=== PATIENT | female | born 1980 | race American Indian/Alaskan Native ===

== ENCOUNTER 2019-03-29 20:24 | Emergency (ER) | payer SELFPAY ==
[2019-03-29] MEDS ORDERED: NACL 0.9% 1000 ML 1,000 ML IV ONE (20:41)
--- NOTE | 2019-03-29 20:43 | Emergency Department Report ---
ED General Adult HPI - General Chief complaint: Arrhythmia/Palpitations Stated complaint: CHEST PAIN Time Seen by Provider: 03/29/19 20:31 Source: patient, EMS (verbal report received from EMS.ems notes not available at time of chart dictation), RN notes reviewed, old records reviewed Mode of arrival: Stretcher Limitations: No Limitations - History of Present Illness Initial comments: This is a 38-year-old female. This patient is not known to this provider previously. She typically follows at the [facility]. Her past medical history includes obesity, bronchitis, tobacco use, hypertension and lupus. She is noncompliant with prednisone and was lisinopril and she reports that she does not take control tablets oral contraceptives, and she states she has not delivered a given within the past 6 weeks. The patient is brought to the hospital by EMS for chest pressure, palpitations, lightheadedness and shortness of breath. EMS found the patient to be in SVT, which did not react to vagal maneuvers, but terminated with 6 mg of adenosine. She states she is not , and she reports onset of right-sided breast pain, burning in nature, earlier on this morning, with an associated breast lump. This burning pain did not radiate to the back, arms or neck. There is no vomiting, diaphoresis or shortness of breath associated with her previous pain. The patient also endorses a chronic cough, and intermittent mucus production. She also has chronic right-sided paracervical neck pain. Us is nontraumatic. Kaia roberto, after receiving adenosine, she is not in SVT, currently denies chest pain, shortness of breath, palpitations. The patient denies other new symptoms. -: Gradual, Sudden Location: chest (right breast) Radiation: non-radiation Quality: aching Consistency: intermittent Improves with: rest Worsens with: movement - Related Data Previous Rx's Medication Instructions Recorded Last Taken Type Azithromycin [Zithromax TAB] 500 mg PO QDAY #5 tablet 01/31/14 Unknown Rx Allergies Allergy/AdvReac Type Severity Reaction Status Date / Time Latex, Natural Rubber Allergy Intermediate hives, Verified 07/22/13 07:05 swelling hydroxyzine HCl [From Atarax] Allergy Unknown Verified 07/21/13 23:22 ED Review of Systems ROS: Stated complaint: CHEST PAIN Other details as noted in HPI Constitutional: denies: fever Eyes: denies: eye discharge ENT: congestion Respiratory: cough Cardiovascular: chest pain, palpitations Gastrointestinal: denies: nausea, vomiting Genitourinary: denies: dysuria Musculoskeletal: myalgia Skin: denies: lesions Neurological: weakness Psychiatric: anxiety ED Past Medical Hx - Past Medical History Hx Hypertension: No Hx Congestive Heart Failure: No Hx Diabetes: No Hx Deep Vein Thrombosis: No Hx Renal Disease: No Hx Sickle Cell Disease: No Hx Seizures: No Hx Asthma: No Hx COPD: No Hx HIV: No Additional medical history: Hx. Lupus - Social History Smoking Status: Never Smoker - Medications Home Medications: Home Medications Medication Instructions Recorded Confirmed Last Taken Type Azithromycin [Zithromax TAB] 500 mg PO QDAY #5 tablet 01/31/14 Unknown Rx ED Physical Exam - General Limitations: No Limitations General appearance: alert, anxious, obese - Head Head exam: Present: atraumatic, normocephalic - Eye Eye exam: Present: normal appearance, EOMI. Absent: nystagmus - ENT ENT exam: Present: normal exam, normal orophraynx, mucous membranes moist, normal external ear exam - Neck Neck exam: Present: normal inspection, full ROM. Absent: tenderness, meningismus - Respiratory Respiratory exam: Present: normal lung sounds bilaterally, chest wall tenderness, other (nontender right-sided breast masses noted. There is no redness, pus or streaking. Chaperoned by nurse Raya Scott). Absent: respiratory distress, wheezes, rales, rhonchi, stridor - Cardiovascular Cardiovascular Exam: Present: normal rhythm, tachycardia, normal heart sounds. Absent: systolic murmur, diastolic murmur, rubs, gallop - GI/Abdominal GI/Abdominal exam: Present: soft. Absent: distended, tenderness, guarding, rebound, rigid, pulsatile mass - Extremities Exam Extremities exam: Present: normal inspection, full ROM, other (2+ pulses noted in the bilateral upper, lower extremities. Compartments soft. No long bony tenderness. The pelvis is stable.). Absent: pedal edema, joint swelling, calf tenderness - Back Exam Back exam: Present: normal inspection, full ROM. Absent: tenderness, CVA tenderness (R), CVA tenderness (L), paraspinal tenderness, vertebral tenderness - Neurological Exam Neurological exam: Present: alert, oriented X3, other (Extraocular movements intact. Tongue midline. No facial droop. Facial sensation intact to light touch in the V1, V2, V3 distribution bilaterally. 5 and 5 strength in 4 extremities.. Sensation is intact to light touch in 4 extremities.). Absent: motor sensory deficit - Psychiatric Psychiatric exam: Present: anxious - Skin Skin exam: Present: warm, dry, intact, normal color. Absent: rash ED Course Vital Signs 03/29/19 03/29/19 03/29/19 20:31 20:46 21:00 Temperature 98.1 F Pulse Rate 102 H 96 H 108 H Respiratory 15 13 20 Rate Blood Pressure 151/93 150/99 O2 Sat by Pulse 99 98 Oximetry 03/29/19 03/29/19 03/29/19 21:10 21:15 21:30 Temperature Pulse Rate 100 H 92 H Respiratory 17 17 15 Rate Blood Pressure 150/99 151/93 O2 Sat by Pulse 99 99 97 Oximetry 03/29/19 03/29/19 03/29/19 21:46 22:03 22:16 Temperature Pulse Rate 100 H 96 H 92 H Respiratory 13 14 17 Rate Blood Pressure 150/99 150/99 150/99 O2 Sat by Pulse 96 97 Oximetry 03/29/19 03/29/19 03/29/19 22:30 22:46 23:00 Temperature Pulse Rate 90 87 91 H Respiratory 19 17 15 Rate Blood Pressure 150/99 150/99 131/87 O2 Sat by Pulse 98 98 100 Oximetry - Reevaluation(s) Reevaluation #1: 03/29/19 20:56 Differential diagnosis, including not limited to: SVT, thyroid derangement, electrolyte derangement, costochondritis, breast mass, pneumonia, pulmonary embolus, acute coronary syndrome, pulmonary hypertension, obstructive sleep apnea Assessment and plan: 38-year-old female, status post SVT, converted with a denosine, with nonspecific breast pain The patient is afebrile with reassuring vital signs and her tachycardia has resolved. Patient has lupus, which is her only risk factor for DVT, pulmonary embolism, otherwise, low risk by well's criteria. Patient low risk by the heart score, and low risk by the telemetry floor for major adverse cardiac event. Patient most likely has undiagnosed pulmonary hypertension and/or obstructive sleep apnea, given obesity. She is requesting medication for anxiety. We will check basic laboratory studies, EKG 2, d-dimer, troponin 2, and reassess after data points. The patient can follow up with an outpatient deckhand maintenance if her initial ER workup is unremarkable. She can follow up with outpatient primary care doctor or breast surgeon for her breast lesion. Reevaluation #2: 03/29/19 21:54 Troponin negative. D-dimer negative. Laboratory studies unremarkable. Tachycardia resolved. Patient resting comfortably in stretcher, and in no acute distress. Reevaluation #3: 03/29/19 23:14 EKG #2 is unchanged from prior. I'll signs remained stable. X-ray of the chest reviewed and appreciated. Do not clinically suspect pneumonia at this point in time. Reevaluation #4: 03/29/19 23:58 Troponin is negative 2. No additional events noted. Patient will be discharged at this point in time. ED Medical Decision Making - Lab Data Result diagrams: 03/29/19 20:51 03/29/19 20:51 Vital Signs 03/29/19 20:46 Temperature 98.1 F Pulse Rate 101 H Respiratory 14 Rate Blood Pressure 151/93 O2 Sat by Pulse 99 Oximetry Vital Signs 03/29/19 20:46 Temperature 98.1 F Pulse Rate 101 H Respiratory 14 Rate Blood Pressure 151/93 O2 Sat by Pulse 99 Oximetry Lab Results 03/29/19 03/29/19 03/29/19 Range/Units 20:51 20:51 20:51 WBC 9.5 (4.5-11.0) K/mm3 RBC 5.00 (3.65-5.03) M/mm3 Hgb 14.0 (10.1-14.3) gm/dl Hct 43.1 H (30.3-42.9) % MCV 86 (79-97) fl MCH 28 (28-32) pg MCHC 32 (30-34) % RDW 15.4 H (13.2-15.2) % Plt Count 279 (140-440) K/mm3 PT (12.2-14.9) Sec. INR (0.87-1.13) APTT (24.2-36.6) Sec. D-Dimer (0-234) ng/mlDDU Magnesium 1.90 (1.7-2.3) mg/dL Total Creatine Kinase 47 (30-135) units/L HCG, Quant < 2 (0-4) mIU/mL 03/29/19 Range/Units 20:51 WBC (4.5-11.0) K/mm3 RBC (3.65-5.03) M/mm3 Hgb (10.1-14.3) gm/dl Hct (30.3-42.9) % MCV (79-97) fl MCH (28-32) pg MCHC (30-34) % RDW (13.2-15.2) % Plt Count (140-440) K/mm3 PT 13.5 (12.2-14.9) Sec. INR 1.06 (0.87-1.13) APTT 29.7 (24.2-36.6) Sec. D-Dimer 222.32 (0-234) ng/mlDDU Magnesium (1.7-2.3) mg/dL Total Creatine Kinase (30-135) units/L HCG, Quant (0-4) mIU/mL - EKG Data -: EKG Interpreted by Pr EKG shows normal: sinus rhythm Rate: normal - EKG Data When compared to previous EKG there are: previous EKG unavailable 03/29/19 21:00 This is a sinus rhythm, 98 bpm Leftward axis, left anterior fascicular block, QTC prolonged, the EKG is abnormal, EKG is not consistent with ST elevation myocardial infarction, it is unchanged when compared to prior EKG from 01/29/2014. - Radiology Data Radiology results: pending, report reviewed, image reviewed Print Report Referring Physician: RUSSELL CARNES Patient Name: ZARINA PEDRAZA Date of : 1980 Sex: Female Report Date: 2019-03-29 Report Status: Finalized Findings [facility] [address] [place] [address] XRay Report Signed Patient: ZARINA PEDRAZA MR#: [id number] : 1980 Acct:[id number] Age/Sex: 38 / F ADM Date: 03/29/19 Loc: ED Attending Dr: Ordering Physician: RUSSELL CARNES MD Date of Service: 03/29/19 Procedure(s): XR chest routine 2V Accession Number(s): [id number] cc: RUSSELL CARNES MD Fluoro Time In Minutes: CHEST 2 VIEWS INDICATION: Chest Pain. COMPARISON: None FINDINGS: Support devices: None. Heart: Within normal limits. Lungs: Prominent bronchovascular markings are noted. Pleura: No significant pleural effusion. No pneumothorax. Additional findings: None. IMPRESSION: 1. Questionable airway disease Signer Name: Henrry Nelson MD Signed: 03/29/2019 10:18 PM Workstation Name: [id number] Transcribed By: WG Dictated By: Henrry Nelson MD Electronically Authenticated By: Henrry Nelson MD Signed Date/Time: 03/29/19 3723 Critical care attestation.: If time is entered above; I have spent that time in minutes in the direct care of this critically ill patient, excluding procedure time. ED Disposition Clinical Impression: History of PSVT (paroxysmal supraventricular tachycardia), Breast mass Disposition: - TO HOME OR SELFCARE Is pt being admited?: No Does the pt Need Aspirin: No Condition: Stable Instructions: Supraventricular Tachycardia (ED), Valsalva Maneuver (ED) Additional Instructions: Recommend patient avoid consumption of caffeine, energy drinks, coffee, tea. Recommend patient participate in physical activities as tolerated, and lose weight, to improve overall quality of life and underlying cardiovascular health. Recommend patient follow up with a primary care doctor or deckhand maintenance for SVT within the next 7-10 days. Recommend patient follow-up with a breast specialist, such as Dr. Cervantes, within the next 4 weeks. Return to the emergency room right away with new, worsening or different symptoms, or symptoms are not present on the initial emergency room evaluation. Referrals: VY NGO MD [Staff Physician] - 3-5 Days [facility] [Provider Group] - 3-5 Days [facility] [Provider Group] - 3-5 Days
[2019-03-29] MEDS ORDERED: ATIVAN IV ONE (20:50)
[2019-03-29 21:05] LABS: Hematocrit 43.1 % (30.3-42.9); Mean Corpuscular HGB Conc 32 % (30-34); Mean Corpuscular Volume 86 fl (79-97); Platelet Count 279 K/mm3 (140-440); Red Cell Distribution Width 15.4 % (13.2-15.2)
[2019-03-29 21:18] LABS: INR 1.06 (0.87-1.13)
[2019-03-29 21:19] LABS: Partial Thromboplastin Time 29.7 Sec. (24.2-36.6)
[2019-03-29 21:29] LABS: BUN/Creatinine Ratio 14; Blood Urea Nitrogen 10 mg/dL (7-17); Calcium 9.2 mg/dL (8.4-10.2); Hemolysis Index 7
--- NOTE | 2019-03-29 22:22 | XRay Report ---
CHEST 2 VIEWS INDICATION: Chest Pain. COMPARISON: None FINDINGS: Support devices: None. Heart: Within normal limits. Lungs: Prominent bronchovascular markings are noted. Pleura: No significant pleural effusion. No pneumothorax. Additional findings: None. IMPRESSION: 1. Questionable airway disease Signer Name: Henrry Nelson MD Signed: 03/29/2019 10:18 PM Workstation Name: [id number]
[2019-03-30 00:32] VITALS: BP 132/93
== END 2019-03-30 00:43 | disposition home or self-care (01) ==
LOC: ED 20:24
DX: I47.1 Supraventricular tachycardia (principal); N63.10 Unspecified lump in the right breast, unspecified quadrant; J40 Bronchitis, not specified as acute or chronic; I10 Essential (primary) hypertension; M32.9 Systemic lupus erythematosus, unspecified; F17.200 Nicotine dependence, unspecified, uncomplicated; E66.9 Obesity, unspecified; Z68.42 Body mass index [BMI] 45.0-49.9, adult; Z91.040 Latex allergy status; Z88.8 Allergy status to other drugs, medicaments and biological substances
CPT/HCPCS: 36415; 71046; 80048; 82550; 83735; 84443; 84484; 84702; 85027; 85379; 85610; 85730; 93005; 93010; 96374; 99284; J2060; J7030